=== PATIENT | female | born 1980 | race Caucasian/White ===

== ENCOUNTER 2021-09-04 23:48 | Emergency (ER) | payer OTHER ==
[~2021-09-04 23:48] MED LIST: K-DUR20 MEQ PO; LASIX20 MG PO
[2021-09-05 01:16] LABS: BASOPHIL 0.9 % (0-2); EOSINOPHIL 1.1 % (0-5); HCT 35.2 % (37.0-47.0); HGB 12.3 g/dl (12.5-16.0); LYMPHOCYTE 15.8 % (15-48); MCH 34.5 pg (25.0-31.0); MCHC 34.9 g/dL (32.0-36.0); MCV 98.6 fL (78.0-100.0); MPV 10.3 fL (6.0-9.5); NEUTROPHIL 74.8 % (41-80); NRBC 0; PLT 277 K/uL (150-400); RBC 3.57 M/uL (4.20-5.40); RDW 12.3 % (11.5-14.0); WBC 7.9 K/uL (4.0-10.5)
[2021-09-05 01:40] LABS: ALBUMIN 3.3 g/dL (3.4-5.0); BILIRUBIN - TOTAL 0.2 mg/dL (0.2-1.0); BUN/CREAT RATIO (CALC) 10.8 RATIO; CREATININE 0.74 mg/dL (0.51-0.95); GLOBULIN (CALCULATION) 3.1 g/dL; POTASSIUM 3.4 mmol/L (3.5-5.1); TOTAL PROTEIN 6.4 g/dL (6.4-8.2)
[2021-09-05 01:58] LABS: CORONAVIRUS 2019 SARS-COV-2 NEGATIVE (NEGATIVE); INFLUENZA A NAA NEGATIVE (NEGATIVE)
[2021-09-05] MEDS ORDERED: LASIX20 MG PO (03:59)
[2021-09-05] MEDS ORDERED: K-TAB ER20 MEQ PO (03:59)
== END 2021-09-05 04:20 | disposition home or self-care (01) ==
LOC: FER 23:48
PROVIDERS: Internal Medicine
DX: I50.9 Heart failure, unspecified (principal); J81.1 Chronic pulmonary edema; Z20.822 Contact with and (suspected) exposure to COVID-19; Z88.2 Allergy status to sulfonamides; Z79.899 Other long term (current) drug therapy
CPT/HCPCS: 36415; 71275; 80053; 83880; 84145; 84484; 85025; 93005; Q9967; U0002